=== PATIENT | female | born 1940 | race Caucasian/White ===

== ENCOUNTER 2023-07-30 05:34 | Inpatient (IN) | payer MEDICARE ==
[~2023-07-30] VITALS: Ht 162.6 cm; Wt 57.2 kg
[2023-07-30] MEDS ORDERED: DULO30CA52 PO (06:03)
[2023-07-30] MEDS ORDERED: GABA600T12 PO (06:03)
[2023-07-30] MEDS ORDERED: ANAS1TAB50 PO (06:03)
[2023-07-30] MEDS ORDERED: ROSU40TA23 PO (06:03)
[2023-07-30 06:20] LABS: BASOPHILS # (AUTO) 0.2 K/UL (0.0-0.2); BASOPHILS % (AUTO) 1.8 % (0.0-2.0); EOSINOPHILS # (AUTO) 0.2 K/uL (0.0-0.7); EOSINOPHILS % (AUTO) 1.7 % (0.0-7.0); HEMATOCRIT 38.3 % (31.2-41.9); HEMOGLOBIN 12.9 g/dL (10.9-14.3); LYMPHOCYTES # (AUTO) 1.5 K/uL (0.8-4.8); LYMPHOCYTES % (AUTO) 14.4 % (20.5-51.5); MEAN CORPUSCULAR HEMOGLOBIN 29.5 uug (24.7-32.8); MEAN CORPUSCULAR HGB CONC 34 g/dL (32.3-35.6); MEAN CORPUSCULAR VOLUME 87.1 fL (75.5-95.3); MONOCYTES # (AUTO) 1.2 K/uL (0.1-1.30); MONOCYTES % (AUTO) 11.6 % (0.0-11.0); NEUTROPHILS # (AUTO) 7.2 K/uL (1.8-8.9); NEUTROPHILS % (AUTO) 70.5 % (38.5-71.5); PLATELET COUNT (AUTO) 397 K/uL (179-408); RED BLOOD CELL COUNT(AUTO) 4.39 MIL/uL (3.63-4.92); WHITE BLOOD COUNT (AUTO) 10.2 K/uL (3.8-11.8)
[2023-07-30 06:27] LABS: CALCIUM 10.1 mg/dL (8.5-10.1); CARBON DIOXIDE 33 mmol/L (21-32); CHLORIDE 98 mmol/L (98-107); CREATININE 0.8 mg/dL (0.6-1.3); GLUCOSE 133 mg/dL (74-106); SODIUM SERUM 138 mmol/L (136-145); UREA NITROGEN, BLOOD 10 mg/dL (7-18)
[2023-07-30 06:31] LABS: POTASSIUM 2.8 mmol/L (3.5-5.1)
[2023-07-30 06:33] LABS: ALANINE AMINOTRANSFERASE 21 U/L (14-59); ALBUMIN 3.3 g/dL (3.4-5.0); ALKALINE PHOSPHATASE 73 U/L (50-136); ASPARTATE AMINOTRANSFERASE 27 U/L (15-37); BILIRUBIN,TOTAL 0.6 mg/dL (0.2-1.0); TOTAL PROTEIN, SERUM 6.9 g/dL (6.4-8.2)
[2023-07-30 06:34] LABS: DIFFERENTIAL COMMENT 1
[2023-07-30] MEDS ORDERED: POTASSIUM CHLORIDE 20 MEQ TAB.PRT.SR ONE ×2 (06:43→08:21)
[2023-07-30] MEDS: POTASSIUM CHLORIDE 20 MEQ TAB.PRT.SR PO ONE ×2 (06:45→08:24)
[2023-07-30] MEDS ORDERED: ASPIRIN 81 MG TAB.CHEW ONE (07:13)
[2023-07-30] MEDS ORDERED: FENTANYL CITRATE 100 MCG/2 ML AMPUL ONE (07:14)
[2023-07-30] MEDS: FENTANYL CITRATE 100 MCG/2 ML AMPUL IV ONE (07:15)
[2023-07-30] MEDS: ASPIRIN 81 MG TAB.CHEW PO ONE (07:20)
[2023-07-30] MEDS ORDERED: IOHEXOL 350 100 ML INFUS..BTL ONE (08:32)
[2023-07-30] MEDS ORDERED: IV NORMAL SALINE 250 ML IV ONE (08:33)
[2023-07-30] MEDS ORDERED: SWABABLE VALVE TRANSFER SET EA MC ONE (08:33)
[2023-07-30] MEDS ORDERED: KETOROLAC TROMETHAMINE 15 MG INJ ONE (11:01)
[2023-07-30] MEDS: KETOROLAC TROMETHAMINE 15 MG INJ IVP ONE (11:05)
[2023-07-30 13:44] LABS: *BILIRUBIN,URIN NEGATIVE (NEGATIVE); *BLOOD, URINE NEGATIVE (NEGATIVE); *CLARITY,URINE CLEAR (CLEAR); *COLOR,URINE YELLOW (YELLOW); *KETONES,URINE NEGATIVE (NEGATIVE); *PROTEIN,URINE NEGATIVE (NEGATIVE); *UROBILINOGEN,URINE 0.2 E.U./dl (NORMAL); LEUKOCYTE ESTERASE ,URINE NEGATIVE (NEGATIVE); NITRITE, URINE NEGATIVE (NEGATIVE); PH,URINE 8.5 (5.0-8.0); UGLUCOSE NEGATIVE (NEGATIVE)
[2023-07-30] MEDS ORDERED: ZOLPIDEM 5 MG TABLET PO PRN (18:00)
[2023-07-30] MEDS ORDERED: ONDANSETRON 4 MG/2 ML VIAL IV PRN (18:00)
[2023-07-30 19:00] VITALS: BP 119/59; TEMP 98.5; O2SAT 95
[2023-07-30] MEDS: DOCUSATE SODIUM 100 MG CAPSULE PO SCH (20:40)
[2023-07-30] MEDS: DULOXETINE 30 MG CAPSULE.DR PO SCH (20:41)
[2023-07-31 00:05] VITALS: BP 101/57; TEMP 98.3; O2SAT 95
[2023-07-31 04:15] VITALS: BP 93/53; TEMP 98; O2SAT 96
[2023-07-31] MEDS: PANTOPRAZOLE SODIUM 40 MG TABLET.DR PO SCH (06:35)
[2023-07-31 07:10] LABS: BASOPHILS % (AUTO) 0.5 % (0.0-2.0); EOSINOPHILS # (AUTO) 0.2 K/uL (0.0-0.7); EOSINOPHILS % (AUTO) 1.8 % (0.0-7.0); HEMATOCRIT 34.2 % (31.2-41.9); HEMOGLOBIN 11.8 g/dL (10.9-14.3); LYMPHOCYTES # (AUTO) 1.8 K/uL (0.8-4.8); LYMPHOCYTES % (AUTO) 20.9 % (20.5-51.5); MEAN CORPUSCULAR HEMOGLOBIN 29.8 uug (24.7-32.8); MEAN CORPUSCULAR HGB CONC 35 g/dL (32.3-35.6); MEAN CORPUSCULAR VOLUME 86.2 fL (75.5-95.3); MONOCYTES # (AUTO) 1.6 K/uL (0.1-1.30); MONOCYTES % (AUTO) 18.3 % (0.0-11.0); NEUTROPHILS % (AUTO) 58.5 % (38.5-71.5); PLATELET COUNT (AUTO) 353 K/uL (179-408); RED BLOOD CELL COUNT(AUTO) 3.97 MIL/uL (3.63-4.92); RED CELL DISTRIBUTION WIDTH 14.3 % (12.3-17.7); WHITE BLOOD COUNT (AUTO) 8.6 K/uL (3.8-11.8)
[2023-07-31 07:27] LABS: DIFFERENTIAL COMMENT 1
[2023-07-31 07:34] LABS: THYROID STIMULATING HORMONE 0.064 mIU/mL (0.358-3.740)
[2023-07-31 07:39] LABS: ALANINE AMINOTRANSFERASE 17 U/L (14-59); ALBUMIN 2.7 g/dL (3.4-5.0); ALKALINE PHOSPHATASE 65 U/L (50-136); ASPARTATE AMINOTRANSFERASE 20 U/L (15-37); BILIRUBIN,TOTAL 0.7 mg/dL (0.2-1.0); CALCIUM 9.5 mg/dL (8.5-10.1); CARBON DIOXIDE 30 mmol/L (21-32); CHLORIDE 99 mmol/L (98-107); CHOLESTEROL 118 mg/dL (<200); CREATININE 0.8 mg/dL (0.6-1.3); GLUCOSE 93 mg/dL (74-106); HDL CHOLESTEROL 54 mg/dL (40-60); MAGNESIUM 1.7 mg/dL (1.8-2.4); PHOSPHOROUS 3.6 mg/dL (2.5-4.9); POTASSIUM 3.8 mmol/L (3.5-5.1); SODIUM SERUM 135 mmol/L (136-145); TOTAL PROTEIN, SERUM 6.4 g/dL (6.4-8.2); TRIGLYCERIDES 35 MG/DL (30-150); UREA NITROGEN, BLOOD 16 mg/dL (7-18)
[2023-07-31 08:15] LABS: IRON, SERUM 15 ug/dL (50-175)
[2023-07-31 08:18] VITALS: BP 100/54; TEMP 98; O2SAT 98
[2023-07-31 11:38] LABS: PLATELET ESTIMATE ADEQUATE
[2023-07-31 11:44] LABS: EOSINOPHILS % (MANUAL) 2 % (0-8); LYMPHOCYTES % (MANUAL) 28 % (20-40); MONOCYTES % (MANUAL) 15 % (2-10); NEUTROPHILS % (MANUAL) 55 % (42-75)
[2023-07-31] MEDS: MAGNESIUM OXIDE 400 MG TABLET PO ONE (12:41)
[2023-07-31] MEDS ORDERED: LEVO100T10 PO (14:54)
[2023-07-31] MEDS ORDERED: HYDR25TA4 PO (14:58)
[2023-07-31] MEDS ORDERED: SPIR25TA6 PO (14:58)
[2023-07-31] MEDS ORDERED: LUBI8CAP PO (15:00)
[2023-07-31 16:00] VITALS: BP 96/53; TEMP 97.9; O2SAT 96
[2023-07-31] MEDS: NUTRISOURCE FIBER 4 GM PACKET PO SCH (17:30)
[2023-07-31 20:00] VITALS: BP 111/54; TEMP 98.6; O2SAT 93
[2023-08-01] MEDS: HYDROMORPHONE 1 MG/1 ML DISP.SYRIN IV PRN (02:35)
[2023-08-01 06:04] VITALS: BP 98/54; TEMP 97.9; O2SAT 94
[2023-08-01 07:28] LABS: BASOPHILS # (AUTO) 0.1 K/UL (0.0-0.2); BASOPHILS % (AUTO) 1.3 % (0.0-2.0); EOSINOPHILS # (AUTO) 0.3 K/uL (0.0-0.7); EOSINOPHILS % (AUTO) 3.6 % (0.0-7.0); HEMATOCRIT 35.8 % (31.2-41.9); LYMPHOCYTES # (AUTO) 1.4 K/uL (0.8-4.8); LYMPHOCYTES % (AUTO) 19.5 % (20.5-51.5); MEAN CORPUSCULAR HEMOGLOBIN 29.4 uug (24.7-32.8); MEAN CORPUSCULAR HGB CONC 34 g/dL (32.3-35.6); MEAN CORPUSCULAR VOLUME 87.3 fL (75.5-95.3); MONOCYTES # (AUTO) 1.2 K/uL (0.1-1.30); MONOCYTES % (AUTO) 15.7 % (0.0-11.0); NEUTROPHILS # (AUTO) 4.4 K/uL (1.8-8.9); NEUTROPHILS % (AUTO) 59.9 % (38.5-71.5); PLATELET COUNT (AUTO) 354 K/uL (179-408); RED CELL DISTRIBUTION WIDTH 14.2 % (12.3-17.7); WHITE BLOOD COUNT (AUTO) 7.4 K/uL (3.8-11.8)
[2023-08-01 07:34] LABS: DIFFERENTIAL COMMENT 1
[2023-08-01 07:52] LABS: CALCIUM 9.3 mg/dL (8.5-10.1); CARBON DIOXIDE 32 mmol/L (21-32); CHLORIDE 101 mmol/L (98-107); CREATININE 0.7 mg/dL (0.6-1.3); FERRITIN 254 ng/mL (8-252); GLUCOSE 94 mg/dL (74-106); MAGNESIUM 1.8 mg/dL (1.8-2.4); POTASSIUM 3.7 mmol/L (3.5-5.1); SODIUM SERUM 138 mmol/L (136-145); UREA NITROGEN, BLOOD 14 mg/dL (7-18)
[2023-08-01] MEDS: ANASTROZOLE 1 MG TABLET PO SCH (09:41)
[2023-08-01 11:20] LABS: BAND % (MANUAL) 1 % (0-10); EOSINOPHILS % (MANUAL) 3 % (0-8); LYMPHOCYTES % (MANUAL) 18 % (20-40); MONOCYTES % (MANUAL) 12 % (2-10); NEUTROPHILS % (MANUAL) 66 % (42-75); PLATELET ESTIMATE ADEQUATE
[2023-08-01 12:00] VITALS: BP 100/52; TEMP 97.9; O2SAT 95
[2023-08-01 16:00] VITALS: BP 106/56; TEMP 97.7; O2SAT 96
[2023-08-01 20:10] VITALS: BP 96/57; TEMP 98.7; O2SAT 94
[2023-08-01] MEDS: ACETAMINOPHEN 325 MG TABLET PO PRN (23:46)
[2023-08-02] VITALS: BP 95/48; TEMP 99.1; O2SAT 96
[2023-08-02 04:38] VITALS: BP 95/50; TEMP 97.9; O2SAT 96
[2023-08-02 10:10] LABS: *IMMUNOGLOBULIN G, SERUM 855 mg/dL (586-1602); IMMUNOGLOBULIN A, SERUM 298 mg/dL (64-422); IMMUNOGLOBULIN M, SERUM 96 mg/dL (26-217)
[2023-08-02 11:29] VITALS: BP 97/53; TEMP 98.4; O2SAT 95
[2023-08-02] MEDS ORDERED: ACET325T53 PO (11:58)
[2023-08-02] MEDS ORDERED: LEVO50TA8 PO (11:58)
[2023-08-02] MEDS ORDERED: GADOTERATE MEGLUMINE 10 MMOL/20 ML VIAL IV ONE (12:07)
[2023-08-03] MEDS ORDERED: LEVOTHYROXINE SODIUM 50 MCG TABLET PO SCH (07:00)
[2023-08-04 01:09] LABS: CANCER ANTIGEN 15-3 13.3 U/mL (0.0-25.0); CARCINOEMBRYONIC AG (CEA) 1.5 ng/mL (0.0-4.7)
[2023-08-04 05:11] LABS: A/G RATIO 0.8 (0.7-1.7); ALBUMIN 2.6 g/dL (2.9-4.4); ALPHA-1-GLOBULIN 0.4 g/dL (0.0-0.4); GAMMA GLOBULIN 0.8 g/dL (0.4-1.8); GLOBULIN, TOTAL 3.3 g/dL (2.2-3.9); M-SPIKE Not Observed g/dL (Not Observed)
[2023-08-04 14:10] LABS: FREE KAPPA LT CHAINS SERUM 45.5 mg/L (3.3-19.4); FREE LAMBDA LT CHAIN SERUM 27.7 mg/L (5.7-26.3); KAPPA/LAMBDA RATIO SERUM 1.64 (0.26-1.65)
== END 2023-08-02 14:00 | disposition home health service (06) | DRG 543 ==
LOC: ER 05:39 → TRANSITION 17:47 → TELE3 18:30 → MEDSURG3 07-31 08:05
PROVIDERS: ADMIT Internal Medicine; ATTEND Internal Medicine
DX: M48.54XA Collapsed vertebra, not elsewhere classified, thoracic region, initial encounter for fracture (principal); E44.0 Moderate protein-calorie malnutrition; M51.14 Intervertebral disc disorders with radiculopathy, thoracic region; M51.36 Other intervertebral disc degeneration, lumbar region; M48.061 Spinal stenosis, lumbar region without neurogenic claudication; C50.912 Malignant neoplasm of unspecified site of left female breast; E87.6 Hypokalemia; E03.9 Hypothyroidism, unspecified; E05.80 Other thyrotoxicosis without thyrotoxic crisis or storm; G62.9 Polyneuropathy, unspecified; T38.1X5A Adverse effect of thyroid hormones and substitutes, initial encounter; Y92.009 Unspecified place in unspecified non-institutional (private) residence as the place of occurrence of the external cause; K58.9 Irritable bowel syndrome, unspecified; D18.09 Hemangioma of other sites; J43.2 Centrilobular emphysema; M41.9 Scoliosis, unspecified; M51.26 Other intervertebral disc displacement, lumbar region; E88.09 Other disorders of plasma-protein metabolism, not elsewhere classified; F17.290 Nicotine dependence, other tobacco product, uncomplicated; F32.A Depression, unspecified; Z90.710 Acquired absence of both cervix and uterus; Z85.42 Personal history of malignant neoplasm of other parts of uterus; Z85.828 Personal history of other malignant neoplasm of skin; Z87.828 Personal history of other (healed) physical injury and trauma; Z79.899 Other long term (current) drug therapy; E78.5 Hyperlipidemia, unspecified; Z79.890 Hormone replacement therapy
CPT/HCPCS: 36415; 70030-TC; 71045; 71275; 72131; 82378; 82784; 83550; 83735; 84100; 84155; 84165; 84443; 84484; 85025; 86300; 86334; 93005; 93307; A9575; G0378; J1170; J1885; J3010; Q9967